=== PATIENT | male | born 1995 | race African-American/Black ===

== ENCOUNTER → 2021-10-12 12:43 | Outpatient (CLI) | payer OTHER, SELFPAY ==
--- NOTE | 2021-10-12 | DI.RAD.S_ITS ---
PROCEDURE: [place] SHOULDER INJECTION MR/CT LT INDICATIONS: Pain in left shoulder COMPARISON: None. TECHNIQUE: The indications, alternatives, benefits, risks, and complications of the procedure were explained to the patient. Written informed consent was obtained and placed in the chart. The shoulder was examined fluoroscopically and a site for needle placement chosen for entry into the glenohumeral joint from an anterior approach. The skin was prepped and draped in a sterile fashion, and 1% lidocaine infiltrated from skin down to joint capsule. A spinal needle was inserted into the glenohumeral joint, and a small amount of iodinated contrast media injected to confirm intra-articular placement of the needle tip. This was followed by approximately 12 mL dilute solution of a gadolinium containing MR contrast agent. The needle was removed and a dressing was applied. The patient was given postprocedural instructions and sent to the MR suite for MR imaging. FINDINGS: A single fluoroscopic spot image demonstrates intra-articular location of injected iodinated contrast. IMPRESSION: Successful fluoroscopically guided administration of dilute Gadolinium solution into the shoulder joint for MR arthrogram. Dictated by: Lamar Gaines M.D. on 10/12/2021 at 13:39 Approved by: Lamar Gaines M.D. on 10/12/2021 at 13:39
--- NOTE | 2021-10-12 | DI.MRI.S_ITS ---
PROCEDURE: MR SHOULDER LT W CON INDICATIONS: Pain in left shoulder TECHNIQUE: After the administration of 12 mL of dilute intra-articular Gadolinium contrast, oblique coronal T1 and T2 spin echo with fat saturation, oblique sagittal T1 spin echo with and without fat saturation, oblique sagittal T2 fast spin echo with fat saturation, axial T1 spin echo with fat saturation through the shoulder. COMPARISON: [facility], , [place] SHOULDER INJECTION MR/CT LT, 10/12/2021, 13:05. FINDINGS: Image quality: Excellent. Rotator cuff: Mild supraspinatus tendinosis. The infraspinatus, teres minor, and subscapularis tendons are intact. No significant rotator cuff tendon tear. The rotator cuff musculature is normal in bulk. The shoulder musculature is well-developed. Bones and bursae: No acute trabecular bone injury or fracture. No focal glenohumeral cartilage defect. Minimal degenerative changes at the glenohumeral joint. No significant subacromial/subdeltoid bursal fluid. No intra-articular filling defect in the glenohumeral joint. Capsule and soft tissues: Mildly diminutive appearance of the superior labrum. There is a questionable nondisplaced tear versus sublabral sulcus at the superior labrum just posterior to the biceps tendon anchor. The proximal biceps long head tendon demonstrates mild tendinosis. Glenohumeral ligaments are intact. IMPRESSION: 1. Possible small nondisplaced partial tear of the superior labrum versus normal variant sublabral foramen. 2. Mild tendinosis of the proximal biceps long head tendon. 3. Mild supraspinatus tendinosis. No significant rotator cuff tendon tear. 4. No acute trabecular bone injury. Minimal acromioclavicular osteoarthrosis. Dictated by: Tab Nicole M.D. on 10/12/2021 at 15:34 Approved by: Tab Nicole M.D. on 10/12/2021 at 15:43
== END ==
PROVIDERS: PCP Student in an Organized Health Care Education/Training Program; Referring Provider Student in an Organized Health Care Education/Training Program; Visit Provider Student in an Organized Health Care Education/Training Program
DX: M25.512 Pain in left shoulder (principal)
CPT/HCPCS: 23350; 73222

== ENCOUNTER → 2021-11-21 08:02 | Outpatient (CLI) | payer OTHER, SELFPAY ==
--- NOTE | 2021-11-21 | DI.ECHO.S_ITS ---
[facility]---------+ [facility] +---------+ : : [address] [address] : : : : [id number] : : : : Phone: [phone]---------+ Echocardiogram Report + + :Name: HAIM COYLE Study Date: 11/21/2021 Height: 73 in : :[facility] ReadingLocation: Weight: 275 lb : : Gender: Male BSA: 2.5 m2 : :: 1995 Age: 26 yrs BP: 164/88 mmHg: :Reason For Study: HYPERTENSION : :Ordering Physician: SHANNON HUMPHRIES : :P Performed By: Jaci Sawyer : :Referring: SHANNON HUMPHRIES P : + + Interpretation Summary The patient was in sinus rhythm with heart rates between 72-81 bpm during the exam. There is mild concentric left ventricular hypertrophy. Left ventricular ejection fraction is estimated to be 50 +/- 5%. Indeterminate diastolic function The left ventricle is mildly dilated. No significant valvular disease No prior study for comparison. Procedure: A two-dimensional transthoracic echocardiogram with color flow and Doppler was performed. The study quality was technically adequate. There is no prior echocardiogram noted for this patient. The patient was in sinus rhythm with heart rates between 72-81 bpm during the exam. Left Ventricle: The left ventricle is mildly dilated. There is mild concentric left ventricular hypertrophy. Left ventricular ejection fraction is estimated to be 50 +/- 5%. Indeterminate diastolic function. Right Ventricle: The right ventricle is normal in size and function. Atria: The left atrial size is normal. Right atrial size is normal. There is no Doppler evidence for an interatrial shunt. Mitral Valve: The mitral valve is normal in structure and function. There is trace mitral regurgitation. Aortic Valve: The aortic valve is trileaflet. The aortic valve opens well. There is no aortic valve stenosis. No aortic regurgitation is present. Tricuspid Valve: The tricuspid valve is normal in structure and function. There is trace tricuspid regurgitation. Pulmonary artery pressures cannot be estimated because of the lack of a measurable TR jet velocity. Pulmonic Valve: The pulmonic valve leaflets are thin and pliable; valve motion is normal. There is mild pulmonic regurgitation. Great Vessels: The aortic root is normal size. The dimensions of the ascending aorta are normal. The IVC is of normal diameter and collapses greater than 50% with a sniff. This suggests a low right atrial pressure of 3 mm Hg. Pericardium/ Pleura There is no pericardial effusion. There is no pleural effusion. MMode/2D Measurements & Calculations LVIDd: 6.1 cm LVOT diam: 2.5 cm LVIDs: 4.6 cm Ao root diam: 3.4 cm FS: 24.2 % asc Aorta Diam: 2.7 cm EPSS: 1.3 cm Ao Arch Diam (Prox Trans): 2.6 cm IVSd: 1.1 cm LVPWd: 1.1 cm LV hawk. diameter/BSA (cm/m^2): 2.5 LV sys. diameter/BSA (cm/m^2): 1.9 LA A2 area: 22.4 cm2 RA long axis: 5.3 cm LA A4 area: 20.6 cm2 RA area: 16.6 cm2 LA length (vol): 5.7 cm RA vol: 44.2 ml LA vol: 68.9 ml RA : 17.9 ml/m2 LA vol index: 28.0 ml/m2 IVC diam: 1.9 cm RVD1 (basal): 3.4 cm RVD2 (mid): 2.7 cm TAPSE: 1.7 cm Doppler Measurements & Calculations Ao V2 max: 122.4 cm/sec LVOT Max Christian: 81.8 cm/sec Ao V2 mean: 88.1 cm/sec LV V1 max P.7 mmHg Ao max P.0 mmHg LV V1 VTI: 15.0 cm Ao mean P.4 mmHg SAURABH(I,D): 3.1 cm2 Ao V2 VTI: 23.5 cm SAURABH(V,D): 3.3 cm2 sev ratio: 0.64 SAURABH indexed to BSA (cm^2/m^2): 1.3 MV E max christian: 61.9 cm/sec PA V2 max: 100.3 cm/sec MV A max christian: 57.6 cm/sec PA V2 mean: 72.4 cm/sec MV E/A: 1.1 PA mean P.3 mmHg Med Peak E' Christian: 6.8 cm/sec PA pr(Accel): 39.6 mmHg E/E' med: 9.1 Lat Peak E' Christian: 10.7 cm/sec E/E' lat: 5.8 E/e' average: 7.4 MV dec time: 0.19 sec SV(LVOT): 73.1 ml Reading Physician:DOMINIQUE
== END ==
PROVIDERS: PCP Student in an Organized Health Care Education/Training Program; Referring Provider Student in an Organized Health Care Education/Training Program; Visit Provider Student in an Organized Health Care Education/Training Program
DX: I37.1 Nonrheumatic pulmonary valve insufficiency (principal); I10 Essential (primary) hypertension
CPT/HCPCS: 93306

== ENCOUNTER → 2022-04-05 09:00 | Outpatient (CLI) | payer OTHER, SELFPAY | PROVIDERS: Family Provider Student in an Organized Health Care Education/Training Program; PCP Student in an Organized Health Care Education/Training Program; Referring Provider Student in an Organized Health Care Education/Training Program; Visit Provider Student in an Organized Health Care Education/Training Program | DX: M25.532 Pain in left wrist (principal) ==

== ENCOUNTER → 2022-04-12 08:01 | Outpatient (CLI) | payer OTHER, SELFPAY ==
--- NOTE | 2022-04-12 | DI.ECHO.S_ITS ---
[facility]---------+ [facility] +---------+ : : [address] [address] : : : : [id number] : : : : Phone: [phone] +---------+ Echocardiogram Report + + :Name: HAIM COYLE Study Date: 04/12/2022 Height: 73 in : :[facility] ReadingLocation: Weight: 280 lb : : Gender: Male BSA: 2.5 m2 : :: 1995 Age: 27 yrs BP: 162/98 mmHg: :Reason For Study: Chest pain, shortness of breath : :Ordering Physician: OWEN, : :PERI Performed By: Jaci Martinez : :Referring: PERI WEAVER : + + Interpretation Summary The left ventricle is mildly dilated. There is mild concentric left ventricular hypertrophy. Left ventricular ejection fraction is estimated to be 50 +/- 5%. This is unchanged compared to the previous study. The right ventricle is normal in size and function. No significant valvular pathology seen. The IVC is of normal diameter and collapses greater than 50% with a sniff. This suggests a low right atrial pressure of 3 mm Hg. BP: 162/98 mmHg Procedure: A two-dimensional transthoracic echocardiogram with color flow and Doppler was performed. The study quality was technically good. There has been no significant change since the previous study. The patient was in sinus rhythm with heart rates between 80-92 bpm during the exam. Left Ventricle: The left ventricle is mildly dilated. There is mild concentric left ventricular hypertrophy. There is no thrombus. Left ventricular ejection fraction is estimated to be 50 +/- 5%. This is unchanged compared to the previous study. There is borderline global hypokinesis of the left ventricle. MV E/A: 1.2 Med Peak E' Christian: 8.4 cm/sec E/E' med: 7.6. Right Ventricle: The right ventricle is normal in size and function. Atria: The left atrial size is normal. There has been no significant change since the previous study. Right atrial size is normal. There is no Doppler evidence for an interatrial shunt. Mitral Valve: The mitral valve is normal in structure and function. There is trace mitral regurgitation. Aortic Valve: The aortic valve is normal in structure and function. The aortic valve is trileaflet. There is no aortic valve stenosis. There is trace aortic regurgitation. Tricuspid Valve: The tricuspid valve is normal in structure and function. Pulmonary artery pressures cannot be estimated because of the lack of a measurable TR jet velocity. There is trace tricuspid regurgitation. Pulmonic Valve: The pulmonic valve leaflets are thin and pliable; valve motion is normal. There is trace pulmonic regurgitation. Great Vessels: The aortic root is normal size. The ascending aorta is normal in size. The pulmonary artery is normal size. The IVC is of normal diameter and collapses greater than 50% with a sniff. This suggests a low right atrial pressure of 3 mm Hg. Pericardium/ Pleura There is a trivial pericardial effusion noted. Physiological pericardial effusion. No tamponade. There is no pleural effusion. MMode/2D Measurements & Calculations LVIDd: 5.8 cm LVOT diam: 2.5 cm LVIDs: 3.9 cm Ao root diam: 3.5 cm FS: 32.8 % asc Aorta Diam: 2.7 cm EPSS: 0.80 cm IVSd: 1.2 cm LVPWd: 1.2 cm LV hawk. diameter/BSA (cm/m^2): 2.3 LV sys. diameter/BSA (cm/m^2): 1.6 LA dimension: 4.0 cm RA long axis: 4.8 cm LA A2 area: 23.0 cm2 RA area: 16.3 cm2 LA A4 area: 19.8 cm2 RA vol: 46.9 ml LA length (vol): 5.5 cm RA : 18.9 ml/m2 LA vol: 70.2 ml LA vol index: 28.3 ml/m2 RVD1 (basal): 4.1 cm LVLs ap4: 7.2 cm LVLd ap2: 8.7 cm TAPSE_phl: 3.4 cm LVLs ap2: 6.6 cm Doppler Measurements & Calculations Ao V2 max: 135.0 cm/sec LVOT Max Christian: 90.0 cm/sec Ao V2 mean: 94.7 cm/sec LV V1 max P.2 mmHg Ao max P.0 mmHg LV V1 VTI: 18.4 cm Ao mean P.0 mmHg SAURABH(I,D): 3.3 cm2 Ao V2 VTI: 27.2 cm SAURABH(V,D): 3.3 cm2 sev ratio: 0.68 SAURABH indexed to BSA (cm^2/m^2): 1.3 MV E max christian: 64.3 cm/sec PA V2 max: 77.6 cm/sec MV A max christian: 52.9 cm/sec PA V2 mean: 56.8 cm/sec MV E/A: 1.2 PA mean P.0 mmHg Med Peak E' Christian: 8.4 cm/sec E/E' med: 7.6 Lat Peak E' Christian: 11.4 cm/sec E/E' lat: 5.6 E/e' average: 6.6 MV dec time: 0.18 sec MVA(VTI): 4.9 cm2 MV V2 mean: 55.5 cm/sec SV(LVOT): 90.3 ml MV mean P.0 mmHg MV V2 VTI: 18.5 cm AV VR_phl: 0.67 SAURABH(VTI)/BSA_phl: 1.3 Reading Physician:06:32 PM
== END ==
PROVIDERS: Family Provider Student in an Organized Health Care Education/Training Program; PCP Student in an Organized Health Care Education/Training Program; Referring Provider Orthopaedic Surgery; Visit Provider Orthopaedic Surgery
DX: R07.9 Chest pain, unspecified (principal); R06.02 Shortness of breath
CPT/HCPCS: 93306